=== PATIENT | female | born 1985 ===

== ENCOUNTER 2021-10-24 02:13 | Outpatient (CLI) | payer BC, SELFPAY ==
[2021-10-24 09:04] LABS: Vitamin B12 258 pg/mL (193-986)
[2021-10-24 09:22] LABS: Abs Immature Grans 0.05 10^3/uL (0.0-0.06); HCT 37.7 % (36.0-46.0); HGB 12.1 g/dL (11.2-15.7); MCH 32.4 pg (27.0-33.0); MCHC 32.1 % (32.0-36.0); MCV 100.8 fL (80-95); MPV 10.9 fL (8.0-11.0); Nucleated RBC 0 %; RBC 3.74 10^6/uL (3.93-5.22); RDW 12.3 % (11.7-14.6); RDW-SD 45.2 fL; WBC 11.31 10^3/uL (4.4-10.8)
[2021-10-24 09:30] LABS: Absolute Basophil Count 0.11 10^3/uL (0.0-0.2); Absolute Eosinophil Count 2.04 10^3/uL (0.0-0.7); Absolute Lymphocyte Count 1.81 10^3/uL (1.2-3.4); Absolute Neutrophil Count 6.67 10^3/uL (1.2-6.7); Atypical Lymphocytes % 0; Bands % 1; Platelet Count 278 10^3/uL (130-400)
[2021-10-24 09:31] LABS: Diff Comment Manual Differential; Macrocytosis 1+
[2021-10-24 09:33] LABS: Absolute Monocyte Count 0.68 10^3/uL (0.1-0.8)
[2021-11-10 14:10] LABS: IgE 29.5 kU/L (<=214)
== END 2021-10-24 02:14 | disposition home or self-care (01) ==
PROVIDERS: PCP Internal Medicine; Visit Provider Internal Medicine
DX: E83.110 Hereditary hemochromatosis (principal)
CPT/HCPCS: 36415; 82784; 83520; 82607; 82785; 85025